=== PATIENT | male | born 1935 | race Caucasian/White ===

== ENCOUNTER 2016-11-24 09:52 | Day surgery (SDC) | payer MEDICARE ==
--- NOTE | 2016-11-11 10:45 | HISTORY AND PHYSICAL E ---
History and Physical NAME: LEANN LEDESMA : 1935 AGE: 81Y ADMITTED: 11/24/2016 ROOM: HISTORY OF PRESENT ILLNESS: The patient is 81 and presented for colon screening. PLAN: Colon exam. PAST MEDICAL HISTORY: History of insomnia, generalized anxiety disorder. REVIEW OF SYSTEMS: NEUROMUSCULAR: Degenerative disc disease; spinal stenosis with radiculopathy; osteoarthritis; peripheral sensory neuropathy. CARDIAC: Negative. SOCIAL HISTORY: Patient had never been a smoker. FAMILY HISTORY: Father , history unknown. Mom had cardiac disease in the past. PHYSICAL EXAMINATION: VITAL SIGNS: Blood pressure 120/80, pulse 50, respirations 18, temperature is 98. HEAD, EYES, EARS, NOSE AND THROAT: Normal. NECK: Supple. LUNGS: Clear. ABDOMEN: Soft. NEUROLOGIC EXAM: Negative. MEDICATIONS: 1. Gabapentin. 2. MiraLax. 3. Imodium. 4. Metamucil. CONCLUSION: Change in bowel habits, question GI bleed. PLAN: Colonoscopy, scheduled for 11/24/2016. Patient for colon screening. He had colonoscopy in 2000. PRIMARY CARE PHYSICIAN: Urologist: Dr. Mendoza DICTATING PHYSICIAN: VEENA REGALADO M.D. [id number] PHY#: [id number] ID: [id number] JOB#: [id number] ACCT: [id number] cc:VEENA REGALADO M.D. , [facility] >
--- NOTE | 2016-11-11 10:46 | HISTORY AND PHYSICAL E ---
History and Physical NAME: LEANN LEDESMA : 1935 AGE: 81Y ADMITTED: 11/24/2016 ROOM: CHIEF COMPLAINT: An 81-year-old male presented with black stool, bloating, constipation, diarrhea, changed bowel habits. HISTORY OF PRESENT ILLNESS: The patient was seen by his primary and GI in [place], and they recommend colonoscopy. The patient is here to expedite his colon exam. He was given appointment for colon in February, but he would like to have it done sooner, so we scheduled him for colon early November. PAST MEDICAL HISTORY: 1. The patient did have colonoscopy 2004 in [place]. 2. He does have history of spinal stenosis. MEDICATIONS: 1. Gabapentin. 2. MiraLAX. 3. Imodium. 4. Metamucil. 5. Aleve. FAMILY HISTORY: His mom is . His dad is . His mom had cardiac disease. Primary etiology of his father's disease is unknown. REVIEWING OF SYSTEMS: HEAD, EYES, EARS, NOSE, THROAT: Cataract. RESPIRATORY: Negative. CARDIAC: Negative. ENDOCRINE: Negative. GASTROINTESTINAL: Black stools, bloating, changed bowel habits, colon screening. NEUROPSYCHIATRIC: Neuropathy, spinal stenosis. PHYSICAL EXAMINATION: GENERAL: He is 81, young looking than his age. VITAL SIGNS: Blood pressure is 120/60, pulse 52, afebrile, temperature is 98. HEAD, EYES, EARS, NOSE, THROAT: Normal. NECK: Supple. CARDIOVASCULAR: Normal. LUNGS: Clear. ABDOMEN: Soft. NEUROLOGIC: Negative. CONCLUSION: 1. Colon screening. 2. History of colonoscopy 2004. PLAN: Colon exam scheduled for 11/24/2016. DICTATING PHYSICIAN: VEENA REGALADO M.D. [id number] PHY#: [id number] ID: [id number] JOB#: [id number] ACCT: [id number] cc:VEENA REGALADO M.D. >
[~2016-11-24 09:52] MED LIST: EPINEPHRINE INJ 1 MG/10 ML DISP.SYRIN ONE; FENTANYL CITRATE INJ/PF 100 MCG/2 ML AMPUL ONE; FLUMAZENIL INJ 0.5 MG/5 ML VIAL IV ONE; GLUCAGON,HUMAN RECOMB 1 MG INJ ONE; GLYCOPYRROLATE INJ 0.4 MG/2 ML VIAL ONE; NALOXONE HCL INJ/PF 0.4 MG/1 ML SDV ONE; ONDANSETRON HCL INJ/PF 4 MG/2 ML SDV ONE; PROMETHAZINE HCL INJ 25 MG/1 ML VIAL ONE
[2016-11-24] MEDS: MIDAZOLAM 2 MG/2 ML INJ ONE ×2 (10:20→10:22)
[2016-11-24 11:49] VITALS: BP 148/75
--- NOTE | 2016-11-24 15:54 | OPERATIVE REPORT E ---
Operative Report NAME: LEANN LEDESMA : 1935 AGE: 81Y DATE OF SURGERY: 11/24/2016 ROOM: PREOPERATIVE DIAGNOSES: 1. Colon screening. 2. History of diarrhea, constipation and change in bowel habits. POSTOPERATIVE DIAGNOSES: 1. Diverticulosis, sigmoid and descending colon. 2. The patient has a history of CA of the prostate treated with radiation. 3. Mild proctitis. PROCEDURE: Complete colonoscopy to the cecum. SURGEON: VEENA REGALADO M.D. ANESTHESIA: Versed 2 mg and Fentanyl 25 mcg. TISSUE REMOVED OR ALTERED: None. PLAN: Recommend follow-up colonoscopy in 5 years. DESCRIPTION OF PROCEDURE: Rectal exam shows proctitis. Sigmoid and descending colon diverticulosis. Transverse colon normal. Ascending colon normal. Cecum normal. Scope withdrawn through cecum, ascending, transverse, descending and sigmoid all the way to the rectum. CONCLUSIONS: 1. Proctitis. 2. Sigmoid and descending colon diverticulosis. PLAN: Recommend follow-up colonoscopy in 5 years. DICTATING PHYSICIAN: VEENA REGALADO M.D. [id number] PHY#: [id number] ID: [id number] JOB#: [id number] ACCT: [id number] cc:VEENA REGALADO M.D. >
--- NOTE | 2016-11-24 15:55 | DISCHARGE SUMMARY E ---
Discharge Summary NAME: LEANN LEDESMA : 1935 AGE: 81Y ADMITTED: 11/24/2016 DISCHARGED: 11/24/2016 PROCEDURE: Colonoscopy. HISTORY: Patient is 81. He has history of CA of the prostate, treated with radiation. Presented with changed bowel habits. Colonoscopy today shows sigmoid descending colon, diverticulosis with mild proctitis. DISCHARGE PLAN: Assurance. Soft diet. Consider followup colonoscopy 5 years. DICTATING PHYSICIAN: VEENA REGALADO M.D. [id number] PHY#: [id number] ID: [id number] JOB#: [id number] ACCT: [id number] cc:VEENA REGALADO M.D. >
== END 2016-11-24 11:50 | disposition home or self-care (01) ==
LOC: END 09:52
PROVIDERS: ATTEND Specialist
PROC: 0DJD8ZZ Inspection of Lower Intestinal Tract, Via Natural or Artificial Opening Endoscopic (ICD-10-PCS; principal; 2016-11-24 10:00)
DX: K57.30 Diverticulosis of large intestine without perforation or abscess without bleeding (principal); K62.89 Other specified diseases of anus and rectum; Z85.46 Personal history of malignant neoplasm of prostate
CPT/HCPCS: 45378; J2250; J3010; J1610; J2405; J0171; J2310; J2550; J3490

== ENCOUNTER 2017-01-06 09:11 | Day surgery (SDC) | payer MEDICARE ==
[~2017-01-06 09:11] MED LIST changes: -EPINEPHRINE INJ 1 MG/10 ML DISP.SYRIN ONE; -FENTANYL CITRATE INJ/PF 100 MCG/2 ML AMPUL ONE; -FLUMAZENIL INJ 0.5 MG/5 ML VIAL IV ONE; -GLUCAGON,HUMAN RECOMB 1 MG INJ ONE; -GLYCOPYRROLATE INJ 0.4 MG/2 ML VIAL ONE; +KETOROLAC TROMETHAMINE 0.45% 4 DROP/0.4 ML DROPERETTE OD PRN; -NALOXONE HCL INJ/PF 0.4 MG/1 ML SDV ONE; -ONDANSETRON HCL INJ/PF 4 MG/2 ML SDV ONE; -PROMETHAZINE HCL INJ 25 MG/1 ML VIAL ONE
[2017-01-06] MEDS ORDERED: FENTANYL CITRATE INJ/PF 100 MCG/2 ML AMPUL ONE (09:49)
[2017-01-06] MEDS ORDERED: MIDAZOLAM 2 MG/2 ML INJ ONE (09:49)
[2017-01-06] MEDS ORDERED: TOBRAMYCIN SULFATE/DEXAMETH OPH OINTMENT 3.5 GM ONE (09:50)
[2017-01-06] MEDS ORDERED: EPINEPHRINE INJ/PF 1 MG/1 ML AMPULE ONE (09:50)
[2017-01-06] MEDS ORDERED: LIDOCAINE 1% INJ-PF (10 MG/ML) 30 ML SDV ONE (09:50)
[2017-01-06] MEDS ORDERED: CHONDR SU A NA/HYALUR INTRAOC KIT (SURGICARE) ONE (09:50)
[2017-01-06] MEDS: TROPICAMIDE 1% OPH SOLN 3 ML OD PRN ×3 (10:17→10:46)
[2017-01-06] MEDS: CYCLOPENTOLATE 0.2%/PHENYLEPHRINE 1% OPH SOLN 2 ML OD PRN ×3 (10:18→10:46)
[2017-01-06] MEDS: BESIFLOXACIN HCL 0.6% OPH SUSP 5 ML BOTTLE OD PRN ×3 (10:19→11:42)
[2017-01-06] MEDS: TETRACAINE HCL 0.5% OPH SOLN 0.6 ML DROPERETTE OD PRN ×3 (10:21→11:13)
== END 2017-01-06 12:35 | disposition home or self-care (01) ==
LOC: SC 09:11
PROVIDERS: ATTEND Ophthalmology
PROC: 08RJ3JZ Replacement of Right Lens with Synthetic Substitute, Percutaneous Approach (ICD-10-PCS; principal; 2017-01-06 10:30)
DX: H25.11 Age-related nuclear cataract, right eye (principal); Z79.1 Long term (current) use of non-steroidal anti-inflammatories (NSAID); Z79.899 Other long term (current) drug therapy; M19.90 Unspecified osteoarthritis, unspecified site; M10.9 Gout, unspecified; G62.9 Polyneuropathy, unspecified; Z85.038 Personal history of other malignant neoplasm of large intestine; Z85.46 Personal history of malignant neoplasm of prostate; Z90.49 Acquired absence of other specified parts of digestive tract
CPT/HCPCS: 66984; V2630; J2250; J3490 ×3; A9270; J0171; J3010; 142

== ENCOUNTER 2017-01-27 09:38 | Day surgery (SDC) | payer MEDICARE ==
[~2017-01-27 09:38] MED LIST changes: +CHONDR SU A NA/HYALUR INTRAOC KIT (SURGICARE) ONE; +EPINEPHRINE INJ/PF 1 MG/1 ML AMPULE ONE; +FENTANYL CITRATE INJ/PF 100 MCG/2 ML AMPUL ONE; -KETOROLAC TROMETHAMINE 0.45% 4 DROP/0.4 ML DROPERETTE OD PRN; +KETOROLAC TROMETHAMINE 0.45% 4 DROP/0.4 ML DROPERETTE OS PRN; +LIDOCAINE 1% INJ-PF (10 MG/ML) 30 ML SDV ONE; +MIDAZOLAM 2 MG/2 ML INJ ONE; +TOBRAMYCIN SULFATE/DEXAMETH OPH OINTMENT 3.5 GM ONE
[2017-01-27] MEDS: TROPICAMIDE 1% OPH SOLN 3 ML OS PRN ×3 (10:08→10:30)
[2017-01-27] MEDS: BESIFLOXACIN HCL 0.6% OPH SUSP 5 ML BOTTLE OS PRN ×3 (10:08→11:00)
[2017-01-27] MEDS: CYCLOPENTOLATE 0.2%/PHENYLEPHRINE 1% OPH SOLN 2 ML OS PRN ×3 (10:08→10:30)
[2017-01-27] MEDS: TETRACAINE HCL 0.5% OPH SOLN 0.6 ML DROPERETTE OS PRN ×3 (10:09→10:41)
== END 2017-01-27 11:55 | disposition home or self-care (01) ==
LOC: SC 09:38
PROVIDERS: ATTEND Ophthalmology
PROC: 08RK3JZ Replacement of Left Lens with Synthetic Substitute, Percutaneous Approach (ICD-10-PCS; principal; 2017-01-27 10:30)
DX: H25.12 Age-related nuclear cataract, left eye (principal); Z96.1 Presence of intraocular lens; G62.9 Polyneuropathy, unspecified; M19.90 Unspecified osteoarthritis, unspecified site; M10.9 Gout, unspecified; G47.30 Sleep apnea, unspecified; Z79.899 Other long term (current) drug therapy; Z85.038 Personal history of other malignant neoplasm of large intestine; Z85.46 Personal history of malignant neoplasm of prostate
CPT/HCPCS: 66984; V2630; J2250; J3490 ×3; A9270; J0171; J3010; 142

== ENCOUNTER 2017-09-05 22:57 | Inpatient (IN) | payer MEDICARE ==
[2017-09-05] MEDS ORDERED: NORMAL SALINE 1000 ML 1,000 ML IV ONE (23:07)
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
[2017-09-05 23:46] LABS: ABSOLUTE BASOPHILS # (AUTO) 0.1 10^3/uL (0.0-0.2); ABSOLUTE EOSINOPHILS # (AUTO) 0.1 10^3/uL (0.0-0.6); ABSOLUTE LYMPHOCYTES (AUTO) 0.9 10^3/uL (0.5-4.7); ABSOLUTE MONOCYTES (AUTO) 0.6 10^3/uL (0.1-1.4); ARTERIAL BLOOD BASE EXCESS -2.5 mmol/L; ARTERIAL BLOOD O2 SATURATION 97.3 % (94-98); BASOPHILS % (AUTO) 0.7 % (0-2); EOSINOPHILS % (AUTO) 0.6 % (0-6); LYMPHOCYTES % (AUTO) 8.6 % (13-45); MEAN CORPUSCULAR HEMOGLOBIN 31.2 pg (27.0-33.4); MEAN CORPUSCULAR HGB CONC 34.2 g/dL (32.0-36.0); MEAN CORPUSCULAR VOLUME 92 fl (80-97); MONOCYTES % (AUTO) 5.7 % (3-13); RED BLOOD COUNT 4.16 10^6/uL (4.35-5.55); SEGMENTED NEUTROPHILS % (AUTO) 84.4 % (42-78); WHITE BLOOD COUNT 10.7 10^3/uL (4.0-10.5)
[2017-09-05 23:57] LABS: ALANINE AMINOTRANSFERASE 34 U/L (21-72); ALBUMIN 3.4 g/dL (3.5-5.0); ALKALINE PHOSPHATASE 58 U/L (38-126); ANION GAP 12 (5-19); ASPARTATE AMINO TRANSFERASE 29 U/L (17-59); BILIRUBIN,DIRECT 0.4 mg/dL (0.0-0.4); BILIRUBIN,TOTAL 0.9 mg/dL (0.2-1.3); BLOOD UREA NITROGEN 29 mg/dL (7-20); CALCIUM 8.8 mg/dL (8.4-10.2); CARBON DIOXIDE 22 mmol/L (22-30); CHLORIDE 110 mmol/L (98-107); CREATINE KINASE 773 U/L (55-170); CREATININE RESULT 1.81 mg/dL (0.52-1.25); GLUCOSE 117 mg/dL (75-110); POTASSIUM 3.7 mmol/L (3.6-5.0); SODIUM 144.3 mmol/L (137-145); TOTAL PROTEIN 6.1 g/dL (6.3-8.2)
[2017-09-06 00:09] LABS: CREATINE KINASE MB 7.43 ng/mL (<4.55)
[2017-09-06 00:18] LABS: TROPONIN I 0.053 ng/mL
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
[2017-09-06 01:17] LABS: APPEARANCE,URINE CLEAR; BILIRUBIN,URINE NEGATIVE (NEGATIVE); GLUCOSE, URINE NEGATIVE (NEGATIVE); KETONES,URINE NEGATIVE (NEGATIVE); LEUKOCYTE ESTERASE,URINE NEGATIVE (NEGATIVE); NITRITE,URINE NEGATIVE (NEGATIVE); PROTEIN,URINE NEGATIVE (NEGATIVE); UROBILINOGEN,URINE NEGATIVE mg/dL (<2.0)
[2017-09-06] MEDS ORDERED: ACETAMINOPHEN 325 MG TABLET PO ONE (01:56)
[2017-09-06] MEDS ORDERED: RINGERS SOLUTION,LACTATED 1,000 ML IV ONE (02:08)
[2017-09-06] MEDS ORDERED: IPRATROPIUM/ALBUTEROL 0.5-2.5 MG/3 ML AMPUL NEB PRN (02:24)
[2017-09-06] MEDS ORDERED: ACETAMINOPHEN 325 MG TABLET PO PRN (02:24)
[2017-09-06] MEDS ORDERED: BESIFLOXACIN HCL 0.6% OPH SUSP 5 ML BOTTLE OP SCH (02:30)
[2017-09-06] MEDS ORDERED: FINASTERIDE 5 MG TABLET PO ONE (03:30)
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
[2017-09-06] MEDS ORDERED: DOXAZOSIN MESYLATE 1 MG TABLET PO ONE ×3 (04:00→21:00)
[2017-09-06 04:09] LABS: URINE BARBITURATES SCREEN NEGATIVE; URINE METHADONE SCREEN NEGATIVE; URINE OPIATES LOW UNCONFIRMED POSITIVE; URINE PHENCYCLIDINE SCREEN NEGATIVE
[2017-09-06] MEDS: NORMAL SALINE 1000 ML 1,000 ML IV SCH ×2 (05:34→10:31)
[2017-09-06 06:32] LABS: ANION GAP 8 (5-19); BLOOD UREA NITROGEN 27 mg/dL (7-20); CALCIUM 8.7 mg/dL (8.4-10.2); CARBON DIOXIDE 28 mmol/L (22-30); CHLORIDE 110 mmol/L (98-107); CREATININE RESULT 1.66 mg/dL (0.52-1.25); GLUCOSE 83 mg/dL (75-110); POTASSIUM 4.2 mmol/L (3.6-5.0); SODIUM 145.9 mmol/L (137-145)
[2017-09-06 06:39] LABS: CREATINE KINASE MB 18.7 ng/mL (<4.55); TROPONIN I 0.085 ng/mL
[2017-09-06 06:43] LABS: CREATINE KINASE 2784 U/L (55-170)
[2017-09-06] MEDS: HEPARIN SOD (PORCINE) 5,000 UNIT/ML 1 ML SYRINGE SUBCUT SCH ×3 (06:49→21:03)
--- NOTE | 2017-09-06 08:10 | EKG REPORT ---
SEVERITY:- NORMAL ECG - SINUS RHYTHM : Confirmed by: Aaliyah Arzate 06-Sep-2017 08:09:02
[2017-09-06] MEDS: FINASTERIDE 5 MG TABLET PO SCH (10:31)
[2017-09-06] MEDS: DOCUSATE SODIUM 100 MG CAPSULE PO SCH ×2 (10:31→17:11)
[2017-09-06 12:13] LABS: ANION GAP 10 (5-19); BLOOD UREA NITROGEN 25 mg/dL (7-20); CALCIUM 8.4 mg/dL (8.4-10.2); CARBON DIOXIDE 25 mmol/L (22-30); CHLORIDE 110 mmol/L (98-107); CREATININE RESULT 1.52 mg/dL (0.52-1.25); GLUCOSE 61 mg/dL (75-110); POTASSIUM 3.8 mmol/L (3.6-5.0); SODIUM 144.6 mmol/L (137-145)
[2017-09-06 12:23] LABS: CREATINE KINASE MB 18.2 ng/mL (<4.55); TROPONIN I 0.094 ng/mL
[2017-09-06 12:36] LABS: CREATINE KINASE 2867 U/L (55-170)
[2017-09-06] MEDS ORDERED: LORAZEPAM INJ 2 MG/1 ML VIAL IV ONE (15:56)
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
--- NOTE | 2017-09-06 18:38 | EKG REPORT ---
SEVERITY:- NORMAL ECG - SINUS RHYTHM : Confirmed by: Aaliyah Arzate 06-Sep-2017 18:36:35
[2017-09-06 18:41] LABS: CREATINE KINASE MB 14.3 ng/mL (<4.55); TROPONIN I 0.094 ng/mL
[2017-09-06 19:10] LABS: ANION GAP 8 (5-19); BLOOD UREA NITROGEN 26 mg/dL (7-20); CARBON DIOXIDE 23 mmol/L (22-30); CHLORIDE 112 mmol/L (98-107); CREATININE RESULT 1.66 mg/dL (0.52-1.25); GLUCOSE 102 mg/dL (75-110); POTASSIUM 4.1 mmol/L (3.6-5.0); SODIUM 142.9 mmol/L (137-145)
--- NOTE | 2017-09-06 19:11 | XCELERA REPORT ---
[address] [address] Transthoracic Echocardiogram Report Name: LEANN LEDESMA Age: 82 yrs Gender: Male : 1935 Patient Status: Inpatient Patient Location: [facility]^A Study Date: 09/06/2017 01:06 PM Height: 72 in Weight: 201 lb BSA: 2.1 m2 Reason For Study: pre syncope and fall systolic murmur Ordering Physician: USHA WHEELER Performed By: Monik Greenwood Interpretation Summary This is a very suboptimal echo study and FERNANDO is highly recommended. PLAX , PSAX are poorly visualized, Apical view showed very poor endocardial definition to allo for Biplane LVEF calculation. Very limited info derived from this study= 1. abnormal AV, configuration uncertain, but appears to have calcific or there is a valve prosthesis, please correlate with pt's history. His heart murmur is likely from this AV, but unable to quantitate severity of . 2. calcified mitral annulus with probably no MS and no MR or poor color flow. LA doesnot appear to be enlarged. 3. Unable to see IVS and post wall on PLAX,Overall LVEF appears to be normal and no LV enlargement. Segmental wall motion abnormality is not complete, but dont suspect any lateral wall, inferior wall, or anterior wall abnormality. 4. RH is not well visualised, no reliable information obtained, RVSP not derived. MMode/2D Measurements & Calculations RVDd: 2.6 cm LVIDd: 3.4 cm FS: 27.6 % Ao root diam: 2.8 cm IVSd: 1.2 cm LVIDs: 2.5 cm EDV(Teich): 47.6 ml LVPWd: 1.2 cm ESV(Teich): 21.5 ml Ao root area: 6.0 cm2 EF(Teich): 54.8 % LA dimension: 3.6 cm Doppler Measurements & Calculations MV E max lryic: MV P1/2t max lyric: Ao V2 max: LV V1 max P.3 cm/sec 97.2 cm/sec 166.3 cm/sec 5.6 mmHg MV A max lyric: MV P1/2t: 61.6 msec Ao max PG: LV V1 max: 70.6 cm/sec 11.1 mmHg 118.0 cm/sec MV E/A: 1.4 MVA(P1/2t): 3.6 cm2 MV dec slope: 462.6 cm/sec2 PA V2 max: 68.1 cm/sec PA max P.9 mmHg I WMSI = 1.00 % Normal = 100 Segments Size X - Cannot 2 - 4 - 1-2 small Interpret 1 - Normal Hypokinetic 3 - AkineticDyskinetic 3-5 moderate 5 - 6-14 large Aneurysmal 15-16 diffuse : USHA WHEELER > Michael Medellin
[2017-09-06] MEDS ORDERED: GABAPENTIN 300 MG CAPSULE PO SCH (22:00)
[2017-09-06] MEDS ORDERED: DOXAZOSIN MESYLATE 1 MG TABLET PO SCH (22:00)
[2017-09-07] MEDS ORDERED: NALOXONE HCL INJ/PF 0.4 MG/1 ML SDV IV ONE (00:40)
[2017-09-07] MEDS ORDERED: NALOXONE HCL INJ/PF 0.4 MG/1 ML SDV ONE (00:41)
[2017-09-07 05:08] LABS: ABSOLUTE BASOPHILS # (AUTO) 0.1 10^3/uL (0.0-0.2); ABSOLUTE EOSINOPHILS # (AUTO) 0.1 10^3/uL (0.0-0.6); ABSOLUTE LYMPHOCYTES (AUTO) 1.1 10^3/uL (0.5-4.7); ABSOLUTE MONOCYTES (AUTO) 0.7 10^3/uL (0.1-1.4); ABSOLUTE NEUT (AUTO) 6.9 10^3/uL (1.7-8.2); BASOPHILS % (AUTO) 0.6 % (0-2); EOSINOPHILS % (AUTO) 1.2 % (0-6); HEMATOCRIT 36.6 % (37.9-51.0); HEMOGLOBIN 12.6 g/dL (13.5-17.0); HGB HCT DIFFERENCE 1.2; LYMPHOCYTES % (AUTO) 12.6 % (13-45); MEAN CORPUSCULAR HEMOGLOBIN 31.8 pg (27.0-33.4); MEAN CORPUSCULAR HGB CONC 34.3 g/dL (32.0-36.0); MEAN CORPUSCULAR VOLUME 93 fl (80-97); RED BLOOD COUNT 3.95 10^6/uL (4.35-5.55); SEGMENTED NEUTROPHILS % (AUTO) 77.6 % (42-78); WHITE BLOOD COUNT 8.9 10^3/uL (4.0-10.5)
[2017-09-07] MEDS: HEPARIN SOD (PORCINE) 5,000 UNIT/ML 1 ML SYRINGE SUBCUT SCH (05:51)
[2017-09-07] MEDS ORDERED: LIDOCAINE 0.5% INJ-PF (5 MG/ML) 50 ML SDV ONE (07:01)
--- NOTE | 2017-09-07 08:58 | OPERATIVE REPORT E ---
Operative Report NAME: LEANN LEDESMA : 1935 AGE: 82Y DATE OF SURGERY: 09/07/2017 ROOM: 407 PREOPERATIVE DIAGNOSIS: Acute urinary retention. POSTOPERATIVE DIAGNOSIS: Acute urinary retention with ureteral obstruction; probable prostatectomy; status post radiation therapy to the pelvis. PROCEDURE: Attempted urinary catheter insertion x2. SURGEON: BURTON SHEEHAN M.D. ANESTHESIA: Topical lidocaine jelly 2%. COMPLICATIONS: None. ESTIMATED BLOOD LOSS: Minimal. INDICATION FOR PROCEDURE: The patient is an 82-year-old white male with a history of dementia, previous abdominal surgery of unclear etiology who was hospitalized for acute renal failure, and rhabdomyolysis. Patient went into urinary retention over the course of 09/06/2017. Multiple attempts were made to insert a urinary catheter, including several small catheters. Surgery was consulted approximately 6:20 a.m. at 09/07/2017 for assistance. No urologist was available. SUMMARY OF PROCEDURE: On physical exam, in room 407, the patient was found to be in supine position, calm, with stable vital signs. Abdominal exam revealed a scar over suprapubic area just slightly off midline, chronic, old. Radiation tattoo aslma identified. The pannus was prepped and draped in sterile fashion. Approximately 4 mL of sterile 2% lidocaine jelly was inserted into the urethral meatus. Attempts were made to insert initially an 18-Guamanian coude catheter, but were unsuccessful due to obstruction at the level of the prostate. An attempt was made with a 20-Guamanian silicone tube and this was unsuccessful as well. Minimal amount of urethral blood returned. Internal consultation by phone made with Dr. Valdo Munoz, urologist, from [place]. Suggestion was made to abort attempts at any further drainage of the urinary bladder because of the previous history of probable prostatectomy and radiation to the pelvis based on the incomplete history. We returned to the patient and found him to be incontinent at this point, thereby spontaneously decompressing his bladder significantly. The patient remained hemodynamically stable and not an extremist. Arrangements are being made in conjunction with the hospitalist service to transfer the patient to a dedicated urologist, at a facility with interventional radiology for catheter insertion. DICTATING PHYSICIAN: BURTON SHEEHAN M.D. [id number] PHY#: [id number] ID: [id number] JOB#: [id number] ACCT: [id number] cc:BURTON SHEEHAN M.D. >
[2017-09-07] MEDS: DOCUSATE SODIUM 100 MG CAPSULE PO SCH (10:49)
[2017-09-07] MEDS: FINASTERIDE 5 MG TABLET PO SCH (10:49)
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
[2017-09-07 12:48] VITALS: BP 60/48
[2017-09-07] MEDS ORDERED: LIDOCAINE 2% JELLY 30 ML TUBE ONE (13:54)
== END 2017-09-07 13:30 | disposition short-term general hospital (02) | DRG 684 ==
LOC: ER 22:57 → EH 09-06 02:25 → UNDOADMIN 09-06 02:55 → 4N 09-06 06:08
PROVIDERS: ADMIT Internal Medicine; ATTEND Internal Medicine
DX: N17.9 Acute kidney failure, unspecified (principal); N13.5 Crossing vessel and stricture of ureter without hydronephrosis; E86.0 Dehydration; N18.3 Chronic kidney disease, stage 3 (moderate); I12.9 Hypertensive chronic kidney disease with stage 1 through stage 4 chronic kidney disease, or unspecified chronic kidney disease; T79.6XXA Traumatic ischemia of muscle, initial encounter; W18.30XA Fall on same level, unspecified, initial encounter; C61 Malignant neoplasm of prostate; R33.8 Other retention of urine; R32 Unspecified urinary incontinence; G62.9 Polyneuropathy, unspecified; I35.0 Nonrheumatic aortic (valve) stenosis; I95.9 Hypotension, unspecified; R79.89 Other specified abnormal findings of blood chemistry; F03.90 Unspecified dementia, unspecified severity, without behavioral disturbance, psychotic disturbance, mood disturbance, and anxiety; Z53.09 Procedure and treatment not carried out because of other contraindication; Z60.2 Problems related to living alone; Z75.1 Person awaiting admission to adequate facility elsewhere
CPT/HCPCS: 36415; 71020; 80048; 80053; 80307; 81001; 82375; 82550; 82553; 82803; 84484; 85025; 93005; 93010; 93306; 96365; 99285; G8978-GP; G8979-GP; J1644; J2060; J2310; J7030; J7120

== ENCOUNTER 2018-02-02 09:17 | Day surgery (SDC) | payer MEDICARE ==
[2018-01-28 12:06] LABS: HEMATOCRIT 43.3 % (37.9-51.0); HEMOGLOBIN 14.1 g/dL (13.5-17.0); MEAN CORPUSCULAR HEMOGLOBIN 29.9 pg (27.0-33.4); MEAN CORPUSCULAR HGB CONC 32.6 g/dL (32.0-36.0); MEAN CORPUSCULAR VOLUME 92 fl (80-97); PLATELET COUNT 291 10^3/uL (150-450); RED BLOOD COUNT 4.73 10^6/uL (4.35-5.55); WHITE BLOOD COUNT 8.9 10^3/uL (4.0-10.5)
[~2018-02-02 09:17] MED LIST changes: +ACETAMINOPHEN 325 MG TABLET PO PRN; +CEFAZOLIN 1 GM/D5W RTU 1 GM/50 ML RTUPB IV PRN; -CHONDR SU A NA/HYALUR INTRAOC KIT (SURGICARE) ONE; -EPINEPHRINE INJ/PF 1 MG/1 ML AMPULE ONE; -FENTANYL CITRATE INJ/PF 100 MCG/2 ML AMPUL ONE; -KETOROLAC TROMETHAMINE 0.45% 4 DROP/0.4 ML DROPERETTE OS PRN; +LACTATED RINGERS 1000 ML IV PRN; +LIDOCAINE 0.5% INJ-PF (5 MG/ML) 50 ML SDV SUBCUT PRN; -LIDOCAINE 1% INJ-PF (10 MG/ML) 30 ML SDV ONE; -MIDAZOLAM 2 MG/2 ML INJ ONE; -TOBRAMYCIN SULFATE/DEXAMETH OPH OINTMENT 3.5 GM ONE
[2018-02-02] MEDS ORDERED: BUPIVACAINE HCL 0.25 % INJ/PF (2.5 MG/1 ML) 30 ML VIAL ONE (11:03)
[2018-02-02] MEDS ORDERED: FENTANYL CITRATE INJ/PF 100 MCG/2 ML AMPUL ONE (11:19)
[2018-02-02] MEDS ORDERED: MIDAZOLAM 2 MG/2 ML INJ ONE (11:19)
[2018-02-02] MEDS ORDERED: KETAMINE HCL INJ 500 MG/10 ML VIAL ONE (11:20)
[2018-02-02] MEDS ORDERED: PROPOFOL INJ 200 MG/20 ML VIAL IV ONE (11:20)
[2018-02-02] MEDS ORDERED: BUPIVACAINE INJ/PF LIPOSOME/PF 266 MG/20 ML SDV ONE (11:25)
[2018-02-02] MEDS ORDERED: MEPERIDINE HCL/PF INJ 25 MG/1 ML DISP.SYRIN IV PRN (12:07)
[2018-02-02] MEDS ORDERED: FENTANYL CITRATE INJ/PF 100 MCG/2 ML AMPUL IV PRN ×3 (12:07)
[2018-02-02] MEDS ORDERED: PROMETHAZINE HCL INJ 25 MG/1 ML VIAL IV PRN ×2 (12:07)
[2018-02-02] MEDS ORDERED: DIPHENHYDRAMINE HCL 50 MG/ML VIAL IV PRN (12:07)
[2018-02-02] MEDS ORDERED: OXYCODONE-ACETAMINOPHEN 5-325 MG TABLET PO PRN ×3 (12:07→13:10)
--- NOTE | 2018-02-02 13:04 | Operative Report ---
Operative Report DATE OF SURGERY: 02/02/18 PREOPERATIVE DIAGNOSIS: Left inguinal hernia; nonincarcerated and nonobstructed POSTOPERATIVE DIAGNOSIS: Same with cord lipoma OPERATION: 1. Left inguinal exploration. 2. Removal of cord lipoma. 3. Left inguinal herniorrhaphy with large Bard plug and overlay mesh repair SURGEON: BURTON SHEEHAN 1ST SUPERVISOR PRINTING AND STAMPING: SLICK CANELA ANESTHESIA: LMAC TISSUE REMOVED OR ALTERED: Cord lipoma; intraperitoneal fat COMPLICATIONS: None ESTIMATED BLOOD LOSS: Scant INTRAOPERATIVE FINDINGS: Below PROCEDURE: The patient was seen in the preop holding area with a left inguinal area was marked. The patient was then taken to the main operating room where LMAC anesthesia was induced. Left groin was clipped of hair prepped and draped in sterile fashion Surgical plan surgical timeout were conducted. Landmarks identified, skin markings made, skin anesthetized with quarter percent Marcaine. A 10 needle was used to make a 5 cm incision along the palpable inguinal hernia. Subcutaneous tissue Gema's fascia divided with electrocautery. Deeper tissues anesthetized with quarter percent Marcaine. The external ring was identified, and the canal opened by eating the external oblique aponeurosis. Cord contents analyzed thoroughly. Cord structures were mobilized as a unit. Cremasteric fibers were attenuated and divided. A large fibrofatty mass mobilized from the cord structures which turned out to be a intraperitoneal fat mass occupying the posterior inferior peritoneal sac. The sac and fat were dissected all the way up to the internal inguinal ring. A separate cluster of fat was associated with the cord structures and this was deferred to here after his cord lipoma We turned our attention to the hernia sac and opened it. The sigmoid colon was visualized but not part of the sac wall. The fatty tissue however was in this occupied a mass of approximately 4 x 5 x 5 cm. a portion of it was resected from the posterior and inferior medial lining, with the fatty blood supply ligated with 0 Vicryl suture. This enabled us to get a round the hernia sac completely with a 2-0 Vicryl suture so as to close it off. This was therefore affected, again taking care not change any bowel in the closure. A small fragment of the hernia sac was excised with electrocautery. We now called our attention to the lipoma which was excised from the cord structures, and ligated at its base with 2-0 Vicryl suture. The cord was sent in the same container as the intraperitoneal fat, and the remnant of hernia sac. We now had the entire field clear. The cord structures were surrounded with a Check drain. We brought onto the field a non- large Bard polypropylene mesh. The plug was deployed adjacent to medial to the structures. This was lateral to the inferior epigastric vessels; the hernia previously dissected free was in fact a hernia. It was positioned nicely, and and secured with 0 PDS sutures in 4 positions to the surrounding fascia and muscle. We now brought onto the field the overlay mesh trended to the appropriate configuration and sewed it to Poupart's ligament and conjoined tendon the newly created internal ring not too tight. Of note the ilioinguinal nerve was visualized throughout the dissection and preserved. We now closed the external oblique aponeurosis along the direction of its fibers with 2-0 Vicryl, Gema's fascia closed with 3-0 Vicryl skin with 3-0 Vicryl, and skin approximately 20 cc of full-strength Exparel deployed in the subcutaneous tissue. Patient tolerated the procedure well, taken recovery room stable condition. The physician licensed occupational therapy assistant, Ms. Sidhu, provided assistance during this case by: Assisting , retracting tissue, instillation of local anesthesia and closure of skin incisions.
--- NOTE | 2018-02-02 13:10 | Discharge Summary ---
Discharge Summary (SDC) - Discharge Final Diagnosis: Left inguinal hernia Date of Surgery: 02/02/18 Discharge Date: 02/02/18 Condition: Stable Treatment or Instructions: [facility] [address], [place] [address] Discharge Instructions: Open Abdominal Procedures (Hernia, Bowel Surgery) 1.General Information: a. DO NOT DRIVE a car or operative machinery for 1-2 weeks or as long as taking Narcotic pain medication. b. DO NOT consume alcohol, tranquilizers, sleeping medication, or any non- prescribed medication for 24 hours unless approved by your doctor or as long as taking pain medication. c. DO NOT make important decisions or sign any important papers for the first 24 hours after surgery. d. When discharged home the same day as surgery have a responsible person with you the first night. 2.Activity Restriction:8 weeks; a. Avoid heavy lifting (> 10-15 lbs), straining abdominal muscles and sports, mowing lawn, vacuum waste cotton cleaner and bending over a lot. b. Walking is important to avoid blood clots in the legs and deep breathing can prevent pneumonia. c. If it fine to go for walks, up and down steps, and ride in a car. 3.Treatment: a. You may shower in 48 hours. Leave skin glue intact, it will fall off on its own in several weeks. Do not scrub the area. You should not bathe in a tub or go swimming for 2 weeks. c. Do not use oils, powders, or lotion on your incision. 4.Medications: a. You may take narcotic prescription tablets for pain if needed, one every 6 hours (_Toradol_). c. You may resume all normal medications unless a change is specified by your doctors. d. Antibiotic Therapy if needed ( NONE) ___ 5.Diet: a. If going home the same day as surgery start with clear liquids, and if you do well then advance to normal foods low inf fat and protein. Smaller portion size may be shah the first night. b. When discharged after hospital stay you may resume a normal diet. 6.Notify Physician If: a. Pain is not relieved by pain medication b. Persistent nausea and vomiting c. Chills, fever (above 101) d. Persistent bleeding or swelling at the operative site e. Unable to urinate for 6-8 hours f. Increased redness, drainage, or foul smelling discharge from incision 7. Follow Up Care: a. Please call our office to schedule an appointment with your doctor for 2 weeks. In the event of any postoperative problems or questions you may call our office during business hours or the On-Call surgeon through the barn operator at [facility]. [facility] [phone] [facility] [phone] (Ask for the surgeon traffic sign erection supervisor) b. I understand the instructions for my postoperative care as described above and a copy has been given to me. _ Witness Patient/Significant Other Date Prescriptions: Ketorolac Tromethamine [Toradol 10 mg Tablet] 10 mg PO Q6HP PRN #20 tablet PRN Reason: Discharge Diet: As Tolerated Discharge Activity: No Lifting Over 10 Pounds, Walk Frequently Report the Following to Your Physician Immediately: Nausea, Vomiting, Fever over 101 Degrees, Redness, Drainage-Foul Smelling
[2018-02-02] MEDS ORDERED: ONDANSETRON HCL INJ/PF 4 MG/2 ML SDV IV PRN (13:11)
[2018-02-02] MEDS ORDERED: ACETAMINOPHEN 100 ML IV ONE (13:35)
[2018-02-02] MEDS ORDERED: LIDOCAINE 2% INJ-PF (20 MG/ML) 2 ML AMPUL ONE (14:50)
[2018-02-02 15:07] VITALS: BP 154/80
== END 2018-02-02 15:25 | disposition home or self-care (01) ==
LOC: OROUT 09:17
PROVIDERS: ATTEND Surgery
PROC: 0YU60JZ Supplement Left Inguinal Region with Synthetic Substitute, Open Approach (ICD-10-PCS; principal; 2018-02-02 11:45)
DX: K40.90 Unilateral inguinal hernia, without obstruction or gangrene, not specified as recurrent (principal); D17.6 Benign lipomatous neoplasm of spermatic cord; M19.90 Unspecified osteoarthritis, unspecified site; K59.09 Other constipation; K52.9 Noninfective gastroenteritis and colitis, unspecified; M48.00 Spinal stenosis, site unspecified; G62.9 Polyneuropathy, unspecified; G47.33 Obstructive sleep apnea (adult) (pediatric); I38 Endocarditis, valve unspecified; Z85.46 Personal history of malignant neoplasm of prostate; Z79.899 Other long term (current) drug therapy
CPT/HCPCS: 36415; 85027; 88302 ×2; 49505; C1781; J2250; J0690; J3010; J3490 ×2; J2704; J0131; C9290; 830

== ENCOUNTER → 2018-12-15 | Outpatient (CLI) | payer MEDICARE ==
--- NOTE | 2018-12-15 11:28 | RADIOLOGY REPORT (SQ) ---
EXAM DESCRIPTION: CT ABD/PELVIS NO ORAL OR IV COMPLETED DATE/TIME: 12/15/2018 10:47 am REASON FOR STUDY: CALCULUS OF KIDNEY N20.0 CALCULUS OF KIDNEY COMPARISON: None. TECHNIQUE: CT scan of the abdomen and pelvis performed without intravenous or oral contrast. Images reviewed with lung, soft tissue, and bone windows. Reconstructed coronal and sagittal MPR images revi ewed. All images stored on PACS. All CT scanners at this facility use dose modulation, iterative reconstruction, and/or weight based d osing when appropriate to reduce radiation dose to as low as reasonably achievable (ALARA). [facility]: Dose Right [facility]: CareDose [facility]: Dose Right [facility]: Teradose 4D [facility]: Smart FanDistro RADIATION DOSE: CT Rad equipment meets quality standard of care and radiation dose reduction techniq ues were employed. CTDIvol: 10.9 mGy. DLP: 577 mGy-cm.mGy. LIMITATIONS: None. FINDINGS: LOWER CHEST: No significant findings. No nodules or infiltrates. NON-CONTRASTED LIVER, SPLEEN, ADRENALS: Evaluation limited by lack of IV contrast. No identified sign ificant masses. PANCREAS: No masses. No peripancreatic inflammatory changes. Punctate benign calcification at the pa ncreatic head. GALLBLADDER: No identified stones by CT criteria. No inflammatory changes to suggest cholecystitis. RIGHT KIDNEY AND URETER: Diffusely small with cortical thinning, 8 cm in length. No solid nodules. No significant calcifications. No hydronephrosis or hydroureter. LEFT KIDNEY AND URETER: Normal size, no solid nodule. 4 cm left lower pole renal cortical cyst. No significant calcifications. No hydronephrosis or hydroureter. AORTA AND RETROPERITONEUM: No aneurysm. No retroperitoneal masses or adenopathy. BOWEL AND PERITONEAL CAVITY: No obvious masses or inflammatory changes. No free fluid. Sigmoid colon ic diverticuli without CT signs of acute diverticulitis. APPENDIX: Normal. PELVIS, BLADDER, AND ABDOMINAL WALL:No abnormal masses. No free fluid. Bladder normal. Small prostat e with radiotherapy seeds present. Intact right inguinal hernia repair BONES: Degenerative disc changes lower lumbar spine OTHER: No other significant finding. IMPRESSION: No CT evidence of urinary calculi. Small right kidney with cortical thinning. Sigmoid diverticulosis without CT signs of acute diverticulitis COMMENT: Quality ID # [id number]: Final reports with documentation of one or more dose reduction techniques (e.g., Automated exposure control, adjustment of the mA and/or kV according to patient size, use of iterative reconstruction technique) TECHNICAL DOCUMENTATION: JOB ID: [id number] [employer]- All Rights Reserved Reading location - IP/workstation name: [email or web address]
== END ==
LOC: RAD 10:08
PROVIDERS: ATTEND Urology
DX: N20.0 Calculus of kidney (principal)
CPT/HCPCS: 74176